=== PATIENT | male | born 1980 | race Hispanic/Latino ===

== ENCOUNTER 2020-03-02 01:54 | Emergency (ER) | payer SELFPAY ==
[2020-03-02 03:53] LABS: Basophils % (Auto) 0.1 % (0.0-1.8); Eosinophils # (Auto) 0.2 K/mm3 (0.0-0.4); Hematocrit 49.2 % (35.5-45.6); Hemoglobin 16.8 gm/dl (11.8-15.2); Lymphocytes # (Auto) 1.6 K/mm3 (1.2-5.4); Lymphocytes % (Auto) 17.1 % (13.4-35.0); Mean Corpuscular HGB Conc 34 % (32-34); Mean Corpuscular Volume 97 fl (84-94); Monocytes # (Auto) 0.8 K/mm3 (0.0-0.8); Monocytes % (Auto) 8.5 % (0.0-7.3); Platelet Count 190 K/mm3 (140-440); Red Blood Count 5.08 M/mm3 (3.65-5.03); Red Cell Distribution Width 13.2 % (13.2-15.2)
[2020-03-02 03:54] LABS: Alanine Aminotransferase 18 units/L (7-56); Albumin 4.4 g/dL (3.9-5); BUN/Creatinine Ratio 12; Blood Urea Nitrogen 11 mg/dL (9-20); Calcium 9.3 mg/dL (8.4-10.2); Hemolysis Index 1
[2020-03-02] MEDS ORDERED: ONDANSETRON 4 MG/2 ML INJ IV ONE (07:50)
[2020-03-02] MEDS ORDERED: HYOSCYAMINE SUBL 0.125 MG TAB SL ONE (07:50)
[2020-03-02] MEDS ORDERED: SODIUM CHLORIDE 0.9% 1000 ML 1,000 ML IV ONE (07:50)
[2020-03-02] MEDS ORDERED: FAMOTIDINE 20 MG/2 ML INJ IV ONE (07:50)
--- NOTE | 2020-03-02 08:38 | Emergency Department Report ---
ED N/V/D HPI - General Chief complaint: Nausea/Vomiting/Diarrhea Stated complaint: EMESIS/DIARRHEA Time Seen by Provider: 03/02/20 07:45 Source: patient Mode of arrival: Ambulatory Limitations: No Limitations - History of Present Illness Initial comments: Patient is a 39-year-old male who presents emergency room with complaints of nausea, vomiting, diarrhea that began yesterday. He states he has had multiple episodes of each. He states that he also has some generalized abdominal cramping but denies any sharp pain. He states that he also has chills. He denies any fever, hematochezia, pus in the stool, hematemesis, melena, cough, shortness of breath. He states that the last thing he ate was vegetable soup. He denies any known sick contacts. He denies any recent travel, recent camping, water from a different source, recent antibiotics. He denies any past medical history. He denies any allergies to medications. He endorses tobacco and marijuana use. States that he last smoked marijuana couple of days ago. - Related Data Previous Rx's Medication Instructions Recorded Last Taken Type Ondansetron [Zofran Odt] 4 mg PO Q8HR PRN #7 tab.rapdis 03/02/20 Unknown Rx Allergies Allergy/AdvReac Type Severity Reaction Status Date / Time No Known Allergies Allergy Unverified 03/02/20 02:13 ED Review of Systems ROS: Stated complaint: EMESIS/DIARRHEA Other details as noted in HPI Comment: All other systems reviewed and negative ED Past Medical Hx - Past Medical History Previous Medical History?: No - Surgical History Past Surgical History?: No - Social History Smoking Status: Current Every Day Smoker Substance Use Type: Marijuana - Medications Home Medications: Home Medications Medication Instructions Recorded Confirmed Last Taken Type Ondansetron [Zofran Odt] 4 mg PO Q8HR PRN #7 tab.rapdis 03/02/20 Unknown Rx ED Physical Exam - General Limitations: No Limitations General appearance: alert, in no apparent distress - Head Head exam: Present: atraumatic, normocephalic - Eye Eye exam: Present: normal appearance - ENT ENT exam: Present: mucous membranes moist - Respiratory Respiratory exam: Present: normal lung sounds bilaterally. Absent: respiratory distress, wheezes, rales, rhonchi, stridor, chest wall tenderness, accessory muscle use, decreased breath sounds, prolonged expiratory - Cardiovascular Cardiovascular Exam: Present: regular rate, normal rhythm, normal heart sounds. Absent: systolic murmur, diastolic murmur, rubs, gallop - GI/Abdominal GI/Abdominal exam: Present: soft, normal bowel sounds, other (negative murphys sign, negative mcburneys point ttp, negative goldstein turners and cullens sign). Absent: distended, tenderness, guarding, rebound, rigid - Neurological Exam Neurological exam: Present: alert, oriented X3 - Psychiatric Psychiatric exam: Present: normal affect, normal mood - Skin Skin exam: Present: warm, dry, intact ED Course Vital Signs 03/02/20 03/02/20 03/02/20 02:13 07:22 08:20 Temperature 97.5 F L 98.0 F Pulse Rate 97 H 106 H 104 H Respiratory 18 20 18 Rate Blood Pressure 123/67 Blood Pressure 175/130 112/72 [Right] O2 Sat by Pulse 97 98 97 Oximetry 03/02/20 10:39 Temperature Pulse Rate 100 H Respiratory 18 Rate Blood Pressure Blood Pressure 110/66 [Right] O2 Sat by Pulse 100 Oximetry ED Medical Decision Making - Lab Data Result diagrams: 03/02/20 02:35 03/02/20 02:35 Lab Results 03/02/20 03/02/20 03/02/20 Range/Units 02:35 02:35 Unknown WBC 9.3 (4.5-11.0) K/mm3 RBC 5.08 H (3.65-5.03) M/mm3 Hgb 16.8 H (11.8-15.2) gm/dl Hct 49.2 H (35.5-45.6) % MCV 97 H (84-94) fl MCH 33 H (28-32) pg MCHC 34 (32-34) % RDW 13.2 (13.2-15.2) % Plt Count 190 (140-440) K/mm3 Lymph % (Auto) 17.1 (13.4-35.0) % [place] % (Auto) 8.5 H (0.0-7.3) % Eos % (Auto) 2.0 (0.0-4.3) % Baso % (Auto) 0.1 (0.0-1.8) % Lymph # (Auto) 1.6 (1.2-5.4) K/mm3 [place] # (Auto) 0.8 (0.0-0.8) K/mm3 Eos # (Auto) 0.2 (0.0-0.4) K/mm3 Baso # (Auto) 0.0 (0.0-0.1) K/mm3 Seg Neutrophils % 72.3 H (40.0-70.0) % Seg Neutrophils # 6.7 (1.8-7.7) K/mm3 Sodium 139 (137-145) mmol/L Potassium 3.8 (3.6-5.0) mmol/L Chloride 96.5 L (98-107) mmol/L Carbon Dioxide 29 (22-30) mmol/L Anion Gap 17 mmol/L BUN 11 (9-20) mg/dL Creatinine 0.9 (0.8-1.3) mg/dL Estimated GFR > 60 ml/min BUN/Creatinine Ratio 12 % Glucose 104 H (75-100) mg/dL Calcium 9.3 (8.4-10.2) mg/dL Total Bilirubin 0.30 (0.1-1.2) mg/dL AST 16 (5-40) units/L ALT 18 (7-56) units/L Alkaline Phosphatase 79 (35-129) units/L Total Protein 7.7 (6.3-8.2) g/dL Albumin 4.4 (3.9-5) g/dL Albumin/Globulin Ratio 1.3 % Lipase 32 (13-60) units/L Vital Signs 03/02/20 03/02/20 03/02/20 02:13 07:22 08:20 Temperature 97.5 F L 98.0 F Pulse Rate 97 H 106 H 104 H Respiratory 18 20 18 Rate Blood Pressure 123/67 Blood Pressure 175/130 112/72 [Right] O2 Sat by Pulse 97 98 97 Oximetry Vital Signs 03/02/20 03/02/20 03/02/20 02:13 07:22 08:20 Temperature 97.5 F L 98.0 F Pulse Rate 97 H 106 H 104 H Respiratory 18 20 18 Rate Blood Pressure 123/67 Blood Pressure 175/130 112/72 [Right] O2 Sat by Pulse 97 98 97 Oximetry 03/02/20 10:39 Temperature Pulse Rate 100 H Respiratory 18 Rate Blood Pressure Blood Pressure 110/66 [Right] O2 Sat by Pulse 100 Oximetry - Medical Decision Making Patient is a 39-year-old male who presents emergency room with complaints of nausea, vomiting, diarrhea that began yesterday. He states he has had multiple episodes of each. He states that he also has some generalized abdominal cramping but denies any sharp pain. He states that he also has chills. He denies any fever, hematochezia, pus in the stool, hematemesis, melena, cough, shortness of breath. He states that the last thing he ate was vegetable soup. He denies any known sick contacts. He denies any recent travel, recent camping, water from a different source, recent antibiotics. He denies any past medical history. He denies any allergies to medications. He endorses tobacco and marijuana use. States that he last smoked marijuana couple of days ago. VSS. No abdominal tenderness on exam, no guarding, no rebound, no rigidity, normal bowel sounds, no peritoneal signs. Labs are stable. Patient given 1 L IV fluids, Zofran, Levsin and symptoms improved and patient is feeling much better and ready to go home. Patient was able to tolerate p.o. intake without difficulty. Patient is afebrile, no leukocytosis, no abdominal tenderness on exam, tolerating p.o. intake, do not suspect acute emergent intra-abdominal pathology at this time. Advised patient that he would need to be reexamined within the next 2 days. Patient given prescription for Zofran. Advised patient to please take medication as prescribed as needed. Increase your water intake as tolerated. Avoid marijuana use. Follow-up with your primary care doctor for reexamination. Return to emergency room immediately for any new or worsening symptoms. - Differential Diagnosis Gastroenteritis, viral syndrome, appendicitis, colitis, obstruction Critical care attestation.: If time is entered above; I have spent that time in minutes in the direct care of this critically ill patient, excluding procedure time. ED Disposition Clinical Impression: Nausea vomiting and diarrhea, Abdominal cramping Disposition: DC-01 TO HOME OR SELFCARE Is pt being admited?: No Does the pt Need Aspirin: No Condition: Stable Instructions: Gastroenteritis (ED) Additional Instructions: please take medication as prescribed as needed. Increase your water intake as tolerated. Avoid marijuana use. Follow-up with your primary care doctor for reexamination. Return to emergency room immediately for any new or worsening symptoms. Prescriptions: Ondansetron [Zofran Odt] 4 mg PO Q8HR PRN #7 tab.rapdis PRN Reason: Nausea And Vomiting Referrals: MERLENE KING MD [Primary Care Provider] - 2-3 Days SANDRA ZAPATA MD [Staff Physician] - 2-3 Days [facility], [LAB/CONTRACT] - 2-3 Days Time of Disposition: 09:27 Print Language: BELIZEAN
[2020-03-02 10:39] VITALS: BP 110/66
== END 2020-03-02 10:39 | disposition home or self-care (01) ==
LOC: ED 01:54
DX: R11.2 Nausea with vomiting, unspecified (principal); R19.7 Diarrhea, unspecified; R10.9 Unspecified abdominal pain; F17.200 Nicotine dependence, unspecified, uncomplicated; F12.10 Cannabis abuse, uncomplicated; Z79.899 Other long term (current) drug therapy
CPT/HCPCS: 36415; 80053; 83690; 85025; 96361; 96374; 96375; 99283; J2405; J7030